=== PATIENT | female | born 1995 | race Caucasian/White ===

== ENCOUNTER 2020-09-02 19:54 | Emergency (ER) | payer SELFPAY ==
[2020-09-02 21:00] LABS: COLOR,URINE YELLOW (YELLOW)
[2020-09-02 21:01] LABS: CLARITY,URINE SL CLOUDY (CLEAR); KETONES,URINE TRACE (NEGATIVE); LEUKOCYTE ESTERASE ,URINE TRACE (NEGATIVE); NITRITE,URINE NEGATIVE (NEGATIVE); PROTEIN,URINE DIPSTICK NEGATIVE (NEGATIVE); URINE UROBILINOGEN 0.2 mg/dL (0.2 - 1)
[2020-09-02 21:15] LABS: BACTERIA,URINE FEW /HPF; EPITHELIAL CELLS,URINE FEW /LPF; RBC,URINE 0-5 /HPF (0-5)
== END 2020-09-02 21:40 | disposition home or self-care (01) ==
LOC: ER 21:05
DX: R30.0 Dysuria (principal); R10.2 Pelvic and perineal pain; N39.0 Urinary tract infection, site not specified; E28.2 Polycystic ovarian syndrome
CPT/HCPCS: 81001; 81025; 99282